=== PATIENT | male | born 1945 | race Caucasian/White ===

== ENCOUNTER 2025-07-15 22:10 | Inpatient (IN) | payer MEDICARE ==
[~2025-07-15 22:10] MED LIST: Iopamidol 370 76% 100 ML VIAL ONE
[2025-07-15 22:30] LABS: #Basophils Less than 0.03 10x3/uL (0.0-0.2); #Eosinophils 0.05 10x3/uL (0.0-0.7); #Monocytes 1.38 10x3/uL (0.11-0.59); #Neutrophils 13.99 10x3/uL (1.40-6.50); %Basophils 0.1 % (0.0-1.0); %Eosinophils 0.3 % (0.0-10.0); %Lymphocytes 6.1 % (21.0-51.0); %Monocytes 8.4 % (0.0-10.0); %Neutrophils 84.7 % (42.0-75.0); Hematocrit 31.2 % (42.0-52.0); Hemoglobin 9.4 g/dL (14.0-18.0); Mean Corpuscular Hemoglobin 31.0 pg (27.0-31.0); Mean Corpuscular Volume 103.0 fL (78.0-98.0); Platelet Count 212 10x3/uL (130-400); Red Blood Cell (RBC) Count 3.03 mill/uL (4.70-6.10); White Blood Cell (WBC) Count 16.52 10x3/uL (4.8-10.8)
[2025-07-15 22:48] LABS: ALT (SGPT) 21 U/L (Less than 45); AST (SGOT) 51 U/L (11-34); Albumin 1.8 g/dL (3.1-4.5); Alkaline Phosphatase 525 U/L (40-110); Anion Gap 20 mmol/L (10-20); BUN (Urea Nitrogen) 74 mg/dL (8.4-25.7); Bilirubin, Total 0.7 mg/dL (0.3-1.2); Calc. Creatinine Clearance 0 mL/min (70-130); Calcium 8.1 mg/dL (7.8-10.44); Carbon Dioxide 20 mmol/L (23-31); Chloride 110 mmol/L (98-107); Globulin 3.7 g/dL (2.4-3.5); Glucose 99 mg/dL (83-110); Potassium 5.1 mmol/L (3.5-5.1); Sodium 145 mmol/L (136-145)
[2025-07-15 23:06] LABS: Magnesium 2.3 mg/dL (1.6-2.6)
[2025-07-15 23:10] LABS: Actual Bicarbonate (HCO3v) 20.9 mEq/L (22-28); Base Excess -3.0 mEq/L (-2.0 to +3.0); Calcium, Ionized (venous) 1.04 mmol/L (1.16-1.32); Chloride (VBG) 108 mmol/L (98-106); Hematocrit-VBG 31 % (42.0-52.0); Hemoglobin (Hb) 10.7 g/dL (12.6-17.4); Potassium (VBG) 4.56 mmol/L (3.70-5.30); Sodium 140 mmol/L (133-146)
[2025-07-16] MEDS ORDERED: Acetaminophen 325 MG TAB PO PRN (01:38)
[2025-07-16] MEDS ORDERED: Ondansetron PF 4 MG/2 ML Vial IVP PRN (01:38)
[2025-07-16] MEDS ORDERED: Calcium Carbonate 500 MG ChewTAB PO PRN (01:38)
[2025-07-16 03:39] VITALS: BMI 22.1
[2025-07-16] MEDS: Vancomycin 1.25 GM / NS 250 ML VIAL-2-BAG IVPB SCH (03:40)
[2025-07-16] MEDS: Albumin 25% 25 GM (100 mL) BOT IVPB SCH (04:39)
[2025-07-16] MEDS: Guaifenesin DM 100-10/5 ML UDCUP PO PRN (04:43)
[2025-07-16 04:56] LABS: #Basophils Less than 0.03 10x3/uL (0.0-0.2); #Eosinophils Less than 0.03 10x3/uL (0.0-0.7); #Monocytes 1.41 10x3/uL (0.11-0.59); #Neutrophils 13.93 10x3/uL (1.40-6.50); %Basophils 0.1 % (0.0-1.0); %Eosinophils 0.1 % (0.0-10.0); %Lymphocytes 6.5 % (21.0-51.0); %Monocytes 8.5 % (0.0-10.0); %Neutrophils 84.3 % (42.0-75.0); Hematocrit 27.1 % (42.0-52.0); Hemoglobin 8.6 g/dL (14.0-18.0); Mean Corpuscular Hemoglobin 31.2 pg (27.0-31.0); Mean Corpuscular Volume 98.2 fL (78.0-98.0); Platelet Count 192 10x3/uL (130-400); Red Blood Cell (RBC) Count 2.76 mill/uL (4.70-6.10); White Blood Cell (WBC) Count 16.54 10x3/uL (4.8-10.8)
[2025-07-16] MEDS ORDERED: NOREPINEPHRINE 8 MG/250 ML-D5W 250 ML IVPB SCH (05:00)
[2025-07-16 05:12] LABS: ALT (SGPT) 19 U/L (Less than 45); AST (SGOT) 45 U/L (11-34); Albumin 2.1 g/dL (3.1-4.5); Alkaline Phosphatase 431 U/L (40-110); Anion Gap 16 mmol/L (10-20); BUN (Urea Nitrogen) 72 mg/dL (8.4-25.7); Bilirubin, Total 0.8 mg/dL (0.3-1.2); Calc. Creatinine Clearance 12 mL/min (70-130); Calcium 7.8 mg/dL (7.8-10.44); Carbon Dioxide 20 mmol/L (23-31); Chloride 111 mmol/L (98-107); Globulin 3.1 g/dL (2.4-3.5); Glucose 116 mg/dL (83-110); Magnesium 2.2 mg/dL (1.6-2.6); Potassium 4.6 mmol/L (3.5-5.1); Sodium 142 mmol/L (136-145)
[2025-07-16] MEDS: Norepinephrine 8 MG/0.9% NS 250 ML ONE (05:28)
[2025-07-16] MEDS ORDERED: Norepinephrine 8 MG/0.9% NS 250 ML IVPB SCH (06:00)
[2025-07-16] MEDS: Enoxaparin 30 MG (0.3 mL) SYRINGE SC SCH (08:46)
[2025-07-16] MEDS: Mupirocin 1 GM TUBE NASAL DECOLONIZATION NASAL SCH (08:47)
[2025-07-16] MEDS: Pantoprazole 40 MG VIAL IVP SCH (08:47)
[2025-07-16] MEDS ORDERED: Glycopyrrolate 0.4 MG/ 2 ML VIAL SLOW IVP PRN (10:40)
[2025-07-16] MEDS: Glycopyrrolate 0.4 MG/ 2 ML VIAL SLOW IVP SCH (11:15)
[2025-07-16] MEDS: Scopolamine 1 mg/72 hour Patch TD SCH (11:17)
[2025-07-17] MEDS ORDERED: Glycopyrrolate 0.2 MG/ML 5 ML SYRINGE SLOW IVP PRN (10:15)
[2025-07-17 11:31] VITALS: BMI 23.4
[2025-07-18] MEDS ORDERED: PNEUMOC 20-VAL CONJ-DIP CRM/PF 0.5 ML SYRINGE IM ONE (09:00)
[2025-07-20 20:34] VITALS: BP 55/32; TEMP 97
== END 2025-07-20 22:00 | disposition expired | DRG 871 ==
LOC: ERS 22:10 → CCU 07-16 01:07 → SURG B 07-17 14:06
PROVIDERS: ADMIT Student in an Organized Health Care Education/Training Program; ATTEND Internal Medicine
PROC: 5A09357 Assistance with Respiratory Ventilation, Less than 24 Consecutive Hours, Continuous Positive Airway Pressure (ICD-10-PCS; principal; 2025-07-16)
PROC: 30233J1 Transfusion of Nonautologous Serum Albumin into Peripheral Vein, Percutaneous Approach (ICD-10-PCS; 2025-07-16)
PROC: 3E03329 Introduction of Other Anti-infective into Peripheral Vein, Percutaneous Approach (ICD-10-PCS; 2025-07-16)
PROC: 3E033XZ Introduction of Vasopressor into Peripheral Vein, Percutaneous Approach (ICD-10-PCS; 2025-07-16)
DX: A41.9 Sepsis, unspecified organism (principal); E43 Unspecified severe protein-calorie malnutrition; J96.01 Acute respiratory failure with hypoxia; N17.9 Acute kidney failure, unspecified; C34.90 Malignant neoplasm of unspecified part of unspecified bronchus or lung; G95.9 Disease of spinal cord, unspecified; J98.11 Atelectasis; C78.7 Secondary malignant neoplasm of liver and intrahepatic bile duct; C79.51 Secondary malignant neoplasm of bone; C34.80 Malignant neoplasm of overlapping sites of unspecified bronchus and lung; R64 Cachexia; E87.20 Acidosis, unspecified; C79.89 Secondary malignant neoplasm of other specified sites; Z66 Do not resuscitate; Z51.5 Encounter for palliative care; R62.7 Adult failure to thrive; R53.81 Other malaise; W19.XXXA Unspecified fall, initial encounter; E88.09 Other disorders of plasma-protein metabolism, not elsewhere classified; E87.70 Fluid overload, unspecified; I25.10 Atherosclerotic heart disease of native coronary artery without angina pectoris; Z98.890 Other specified postprocedural states; Z80.9 Family history of malignant neoplasm, unspecified; I50.9 Heart failure, unspecified; Z95.810 Presence of automatic (implantable) cardiac defibrillator; E78.00 Pure hypercholesterolemia, unspecified; I25.2 Old myocardial infarction; Z87.891 Personal history of nicotine dependence; N18.9 Chronic kidney disease, unspecified; R74.01 Elevation of levels of liver transaminase levels; E04.1 Nontoxic single thyroid nodule; Z68.23 Body mass index [BMI] 23.0-23.9, adult; Z79.899 Other long term (current) drug therapy; Z79.82 Long term (current) use of aspirin; Z82.0 Family history of epilepsy and other diseases of the nervous system; D72.829 Elevated white blood cell count, unspecified
CPT/HCPCS: 36415; 71045; 71275; 74177; 80053; 82805; 83605; 83735; 83880; 84100; 84443; 84484; 85025; 87040; 87428; 93005; 94640; 94660; 96361; 96365; 96375; J0692; J1100; J1650; J2060; J2272; J2470; J2543; J2760; J2919; J3373; J7030; J7050; P9047; Q9967